=== PATIENT | male | born 1935 | race Caucasian/White ===

== ENCOUNTER 2016-11-06 05:11 | Day surgery (SDC) | payer OTHER ==
[~2016-11-06] VITALS: Ht 177.8 cm; Wt 93.0 kg
--- NOTE | ~2016-11-06 | EKG ---
[address] [employer] [place] [address] ELECTROCARDIOGRAM REPORT Name: MIGEL PAEZ Room #: DEP [facility].#: [id number] Admission: 11/06/16 Attend Phys: Cas Pedersen MD Discharge: 11/06/16 Date of : 35 Report #: [id number] THIS REPORT FOR: //name// [facility] Test Date: 2016-11-06 Test Time: 09:25:46 Pat Name: MIGEL PAEZ Department: Room: 150 3 Gender: M Application Helper: MEENAKSHI : 1935 Requested By: Cas Pedesren Order Number: [id number] MD: Shamar Roman Measurements Intervals [place] Rate: 60 P: VA: 291 QRS: -24 QRSD: 83 T: 39 QT: 409 QTc: 409 Interpretive Statements Sinus rhythm with atrial-paced complexes Prolonged VA interval Abnormal R-wave progression, early transition No previous ECG available for comparison Electronically Signed On 11-08-2016 13:27:15 CDT by Shamar Roman [email or web address] <ELECTRONICALLY SIGNED> By: Shamar Roman MD, [facility] 11/08/16 1327 4 4 Shamar Roman MD, [facility] /EPI
--- NOTE | ~2016-11-06 | O ---
[facility] [place] [address] OPERATIVE REPORT Name: MIGEL PAEZ Room #: [facility] [facility] [place]#: [id number] Admission: 11/06/16 Attend Phys: Cas Pedersen MD Discharge: 11/06/16 Date of : 35 Report #: [id number] THIS REPORT FOR: //name// CC: Cas Ramirez DATE OF SERVICE: 11/06/2016 PREOPERATIVE DIAGNOSIS: Incisional hernia. POSTOPERATIVE DIAGNOSIS: Incisional hernia. PROCEDURES PERFORMED: Open repair of incisional hernia with large Ventralex patch. PROCEDURE NOTE: With the patient under anesthesia, the abdomen was prepped and draped in sterile fashion. IV antibiotic was administered. Timeout was performed. The 0.25% Marcaine was used to anesthetize the skin, a curvilinear incision was made over the hernia which was located at the umbilical level. Incision was carried through subcutaneous tissue. The hernia sac was thin at couple of places. I can see the omental fat through that. The hernia sac was free from the overlying skin and then from the fascia edges. The fascia defect is about 2.5 cm. The properitoneal plain was then dissected. Most of the peritoneal sac was intact. Once the properitoneal space was opened up, a large Ventralex patch was placed. Hemostasis obtained. The Ventralex ST patch was used. This opened up well. The fascia was then closed with 0 Prolene horizontal mattress fashion x 3. This incorporated the strap. The closure of the fascia incorporated the strap of the Ventralex patch. The strap was then trimmed at the fascia. Skin was then tacked down with 4-0 PDS. Skin was closed with 5-0 PDS. Dermabond was applied. Fluffy gauze was placed in the umbilicus and covered with OpSite. The patient was taken to recovery room having tolerated the procedure well. By: [id number] Cas Pedersen MD /nt
[~2016-11-06 05:11] MED LIST: ALLOPURINOL 30300 M2 PO; ASPIR 8181 MG PO; AVAPRO300 MG PO; CARDIOTEK-RX T1 EACH PO; LIPITOR10 MG PO; OMEGA 3 FISH OIL PO; VITAMIN B12 PO
[2016-11-06 09:15] LABS: HEMATOCRIT 44.7 % (42.0-52.0); HEMOGLOBIN 15.7 gm/dL (14.0-18.0)
[2016-11-06 10:46] VITALS: BP 104/75
[2016-11-06] MEDS ORDERED: PERCOCET 7.5-31 EACH PO (12:12)
[2016-11-06 12:36] VITALS: BP 104/75
== END 2016-11-06 13:00 | disposition home or self-care (01) ==
LOC: TBA 05:11 → OR 05:11
PROVIDERS: Surgery
DX: K43.2 Incisional hernia without obstruction or gangrene (principal); I10 Essential (primary) hypertension; Z95.0 Presence of cardiac pacemaker; Z87.891 Personal history of nicotine dependence; Z85.038 Personal history of other malignant neoplasm of large intestine; Z87.442 Personal history of urinary calculi; Z98.890 Other specified postprocedural states; Z88.2 Allergy status to sulfonamides; Z79.82 Long term (current) use of aspirin; Z79.899 Other long term (current) drug therapy
CPT/HCPCS: 50010; 50101; 50386; 50403; 50621; 54118; 56524; 56525; 62110; 62900; 70005

== ENCOUNTER 2020-02-19 05:13 | Emergency (ER) | payer OTHER ==
[~2020-02-19] VITALS: Ht 177.8 cm; Wt 90.5 kg
[~2020-02-19 05:13] MED LIST changes: +PERCOCET 7.5-31 EACH PO
[2020-02-19] MEDS ORDERED: FINASTERIDE5 MG PO (05:39)
[2020-02-19] MEDS ORDERED: ATORVASTATIN CA20 MG PO (05:39)
[2020-02-19] MEDS ORDERED: IRBESARTAN300 MG PO (05:39)
[2020-02-19 06:10] LABS: BASOPHILS 1.5 % (0.0-2.0); EOSINOPHILS 3.9 % (0.0-3.0); HEMATOCRIT 43.3 % (42.0-52.0); HEMOGLOBIN 14.4 gm/dL (14.0-18.0); LYMPHOCYTES 20.3 % (24.0-44.0); MCH 32.2 pg (26.0-34.0); MCHC 33.3 g/dL (28.0-37.0); MCV 96.7 fL (80.0-100.0); MONOCYTES 8.7 % (1.0-8.0); PLATELET COUNT 114 thou/uL (150-400); POLYS 65.6 % (36.0-66.0); RBC 4.48 mil/uL (4.50-6.00); RDW 14.1 % (10.5-14.5); WBC 4.6 thou/uL (4.0-11.0)
[2020-02-19 06:30] LABS: ANION GAP 9 mmol/L (7-16); BUN 23 mg/dL (7-18); CALCIUM 9.1 mg/dL (8.5-10.1); CHLORIDE 110 mmol/L (98-107); CO2 27 mmol/L (21-32); CREATININE 1.1 mg/dL (0.7-1.3); GLUCOSE 105 mg/dL (74-106); POTASSIUM 3.9 mmol/L (3.5-5.1); SODIUM 146 mmol/L (136-145)
[2020-02-19 06:39] LABS: TROPONIN-I <0.06 ng/mL (<0.06)
--- NOTE | 2020-02-19 07:19 | EKG ---
[address] [address] ELECTROCARDIOGRAM REPORT Name: MIGLE PAEZ Room #: REG [facility]#: [id number] Admission: 02/19/20 Attend Phys: Discharge: Date of : 35 Report #: [id number] [facility] ED Test Date: 2020-02-19 Test Time: 05:23:10 Pat Name: MIGEL PAEZ Department: Room: Gender: M Business Office Specialist: BLAIRE : 1935 Requested By: Lazaro Ackerman Order Number: [id number] MD: Cal Farias Measurements Intervals [place] Rate: 60 P: 35 AL: 162 QRS: 4 QRSD: 111 T: 112 QT: 439 QTc: 439 Interpretive Statements Atrial-sensed ventricular-paced rhythm No further analysis attempted due to paced rhythm Baseline wander in lead(s) V3 Compared to ECG 11/06/2016 09:25:46 Sinus rhythm no longer present Atrial-paced complex(es) or rhythm no longer present First degree AV block no longer present Electronically Signed On 02-19-2020 7:18:52 [employer] WASHER by Cal Farias [email or web address] <ELECTRONICALLY SIGNED> By: Cal Farias MD, [facility] 02/19/20 0718 2 2 Cal Farias MD, [facility] /EPI
[2020-02-19 08:24] VITALS: BP 146/72
== END 2020-02-19 08:25 | disposition home or self-care (01) ==
LOC: ER 05:13
PROVIDERS: Emergency Medicine
DX: R07.89 Other chest pain (principal); I10 Essential (primary) hypertension; E78.5 Hyperlipidemia, unspecified; Z79.899 Other long term (current) drug therapy; Z88.2 Allergy status to sulfonamides